=== PATIENT | male | born 1995 | race Asian ===

== ENCOUNTER 2017-11-14 17:48 | Emergency (ER) | payer SELFPAY ==
[~2017-11-14] VITALS: Ht 167.6 cm; Wt 83.0 kg
[~2017-11-14 17:48] MED LIST: Z.0.NO CURRENT MEDS; ZOFR4TAB3 SL
[2017-11-14 17:50] VITALS: BP 156/84; PULSE 118; RESP 17; TEMP 102.3; O2SAT 95
[2017-11-14] MEDS ORDERED: IBUPROFEN 800 MG TAB PO ONE (18:00)
[2017-11-14] MEDS ORDERED: ACETAMINOPHEN 500 MG CPLT PO ONE (18:00)
[2017-11-14 18:04] VITALS: BP 150/90; PULSE 106; RESP 20; TEMP 100.2; O2SAT 95
[2017-11-14] MEDS ORDERED: AMOX500T PO (18:44)
--- NOTE | 2017-11-14 18:44 | PD ---
HPI Chief Complaint: Cold / Flu Symptoms Time Seen by Provider: 17:58 Travel History International Travel<30 days: No Contact w/Intl Traveler<30days: No Traveled to known affect area: No History of Present Illness HPI 22-year-old male here with sore throat, subjective fever, cough 3 days. Symptom severity is moderate. No aggravating or alleviating factors. Patient denies difficulty swallowing. No change in voice. No sick contacts or foreign travel. PFSH Past Medical History Medical History: Denies Significant Hx Diminished Hearing: No Immunizations Current: Yes Tetanus Vaccination: Unknown Influenza Vaccination: No Past Surgical History Surgical History: No Previous Surgery Social History Alcohol Use: No Tobacco Use: No Substance Use: No Allergies-Medications (Allergen,Severity, Reaction): Coded Allergies: No Known Allergies (Unverified Adverse Reaction, Unknown, 11/14/17) Reported Meds & Prescriptions Reported Meds & Active Scripts Active Amoxicillin 500 Mg Tab 500 Mg PO TID 10 Days Review of Systems Except as stated in HPI: all other systems reviewed are Neg General / Constitutional: Positive: Fever Eyes: No: Visual changes HENT: Positive: Sore Throat, No: Headaches Cardiovascular: No: Chest Pain or Discomfort Respiratory: Positive: Cough Gastrointestinal: No: Abdominal Pain Physical Exam Narrative GENERAL: Alert and well-appearing 22-year-old male SKIN: Warm and dry. No rash HEAD: Normocephalic. EYES: No injection or drainage. Ear/nose/throat: Pharyngeal erythema with mild tonsillar hypertrophy and exudate. Uvula is midline. Airways patent. Normal phonation. NECK: Supple, trachea midline. No JVD or lymphadenopathy. No meningismus. CARDIOVASCULAR: Regular rate and rhythm without murmurs, gallops, or rubs. RESPIRATORY: Breath sounds equal bilaterally. No accessory muscle use. GASTROINTESTINAL: Abdomen soft, non-tender, nondistended. MUSCULOSKELETAL: No cyanosis, or edema. BACK: No CVA tenderness. Data Data Last Documented VS Orders Orders Ibuprofen (Motrin) (11/14/17 18:00) Acetaminophen (Tylenol) (11/14/17 18:00) Influenzae A/B Antigen (11/14/17 18:02) Amoxicillin (Trimox) (11/14/17 18:45) MDM Medical Decision Making Medical Screen Exam Complete: Yes Emergency Medical Condition: Yes Differential Diagnosis Strep pharyngitis, influenza, viral illness, bronchitis/pneumonia Narrative Course 22-year-old male here with fever and exudative tonsillitis. He is nontoxic appearing. His vital signs are stable. Diagnosis Primary Impression: Pharyngitis Qualified Codes: J02.9 - Acute pharyngitis, unspecified Referrals: Primary Care Physician Additional Instructions: Tylenol 1000 mg every 6 hours as needed for fever and pain. Ibuprofen 800 mg every 6 hours as needed for fever and pain. Antibiotics as directed. Drink plenty of fluids Scripts Amoxicillin (Amoxicillin) 500 Mg Tab 500 MG PO TID for Infection for 10 Days, TAB 0 Refills Prov: Aleksandra Bianchi 11/14/17 Disposition: 01 DISCHARGE HOME Condition: Stable Aleksandra Bianchi Nov 14, 2017 18:44
[2017-11-14] MEDS ORDERED: AMOXICILLIN (TRIHYDRATE) 500 MG CAP PO ONE (18:45)
== END 2017-11-14 18:52 | disposition home or self-care (01) ==
LOC: PHEFT 17:48
DX: J02.9 Acute pharyngitis, unspecified (principal); R50.9 Fever, unspecified
CPT/HCPCS: 87804; 99283